=== PATIENT | female | born 1975 | race Caucasian/White ===

== ENCOUNTER 2017-09-17 20:36 | Emergency (ER) | payer OTHER ==
[2017-09-17 20:48] VITALS: PULSE 77; TEMP 97.9
--- NOTE | 2017-09-17 22:21 | EDPHY ---
H & P Time Seen by Provider: 09/17/17 20:59 HPI/ROS: CHIEF COMPLAINT: Right elbow injury HISTORY OF PRESENT ILLNESS: 42-year-old female presents to the emergency department with injury to her right elbow. The patient was exercising just prior to arrival and fell on her outstretched right hand. She complains of severe pain in her right elbow as well as pain in her right shoulder. She did not hit her head or lose consciousness. She denies any other trauma or injury. She is right-hand dominant. ROS: Denies numbness or tingling in her fingers, pain in her right wrist or right hand. Past Medical/Surgical History: Negative Social History: Lves in [place]. 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 The patient is holding her right elbow 90 degrees of flexion for comfort. Unable to supinate. Unable to extend her right elbow secondary to pain. Mild diffuse tenderness with palpation or right elbow. She also some mild tenderness with palpation of the right shoulder. There is no ecchymosis or abrasions noted. Normal sensation to light touch with normal 2 point discrimination. Strong radial pulse at the right wrist. Full range of motion of her left upper extremity and lower extremities bilaterally. No signs of trauma to her head. Constitutional: Initial Vital Signs Temperature (C) 36.6 C 09/17/17 20:46 Heart Rate 77 09/17/17 20:46 Respiratory Rate 18 09/17/17 20:46 Blood Pressure 145/93 H 09/17/17 20:46 O2 Sat (%) 96 09/17/17 20:46 O2 Delivery Mode Room Air Allergies/Adverse Reactions: Sulfa (Sulfonamide Antibiotics) Allergy (Verified 09/17/17 20:46) Home Medications: Medication Instructions Recorded Hydrocodone/APAP 5/325 [[place] 1 each PO Q4-6PRN PRN #15 tab 09/17/17 5/325 (*)] MDM/Departure - MDM Imaging Results: Imaging Impressions Elbow X-Ray 09/17/17 20:59 Impression: Comminuted fracture of anterior aspect of radial head, with severe displacement of radial head fragment. Orthopedic consultation is advised. Shoulder X-Ray 09/17/17 21:03 Impression: Negative right shoulder. 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 Medications Given: Discontinued Medications Hydrocodone Bitart/Acetaminophen ([place] 5/325mg Prepack#6) 1 btl TAKEYASMINE EDNOW ONE Stop: 09/17/17 22:31 Last Admin: 09/17/17 22:31 Dose: 1 btl ED Course/Re-evaluation: 42-year-old female presents to the emergency department with right elbow injury. X-rays reveal radial head fracture with fracture fragment displacement. Patient understands that she will likely require surgical intervention by orthopedic surgeon. She was placed in long-arm Ortho Glass splint and sling and will follow up with orthopedic surgeon this week. Patient was given hydrocodone for severe pain. The case was discussed with Dr. Hemanth Braun, secondary supervising physician, who did not directly evaluate the patient but agrees with treatment and plan. - Depart Disposition: Home, Routine, Self-Care Clinical Impression: Elbow fracture, right Qualifiers: Encounter type: initial encounter Fracture type: closed Qualified Code(s): S42.401A - Unspecified fracture of lower end of right humerus, initial encounter for closed fracture Condition: Good Instructions: Hydrocodone/Acetaminophen (By mouth), Elbow Fracture (ED) Additional Instructions: Ibuprofen 600mg every 8 hours for pain as directed. Hydrocodone as directed for severe pain. Keep splint and sling on until follow-up with orthopedic surgeon. Ice to help reduce swelling. Prescriptions: Hydrocodone/APAP 5/325 [[place] 5/325 (*)] 1 each PO Q4-6PRN PRN #15 tab PRN Reason: Pain, Severe Referrals: Shahzad Gale MD [Medical Doctor] - 2-3 days without fail (Orthopedic surgeon on-call the)
[2017-09-17] MEDS ORDERED: HYDROCOD/APAP 5/325 PREPACK#6 BTL TAKEHOME ONE ×2 (22:28→22:30)
[2017-09-17 22:36] VITALS: BP 141/80; RESP 16; O2SAT 95
== END 2017-09-17 22:35 | disposition home or self-care (01) ==
DX: S42.401A Unspecified fracture of lower end of right humerus, initial encounter for closed fracture (principal); W18.39XA Other fall on same level, initial encounter; Y92.39 Other specified sports and athletic area as the place of occurrence of the external cause; Y93.B9 Activity, other involving muscle strengthening exercises
CPT/HCPCS: A4565; L3925

== ENCOUNTER → 2017-09-25 | Outpatient (CLI) | payer OTHER ==
[~2017-09-25] MED LIST: BACITRACIN 50,000 UNITS/10 ML SYR IRR ONE; BUPIVACAINE 0.5% 30 ML SDV ONE; POLYMYXIN B SULFATE 500,000 UNIT/10 ML SYR IRR ONE
== END ==
LOC: FIMAGING 08:55
PROVIDERS: ATTEND Physician Assistant
DX: S52.351A Displaced comminuted fracture of shaft of radius, right arm, initial encounter for closed fracture (principal); S53.431A Radial collateral ligament sprain of right elbow, initial encounter; S53.441A Ulnar collateral ligament sprain of right elbow, initial encounter

== ENCOUNTER 2017-09-26 09:11 | Day surgery (SDC) | payer OTHER ==
--- NOTE | 2017-09-25 21:17 | GHP ---
[f rep st] PREOP HISTORY AND PHYSICAL DATE OF ADMISSION: 09/26/2017 DATE OF PLANNED PROCEDURE: 09/26/2017. REASON FOR ADMISSION: Radial head fracture, elbow dislocation right. 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 This was close reduced and splinted in the emergency department. She was seen in the office and decision made to proceed with an open reduction, internal fixation of the radial head, pos sible radial head replacement and ligamentous repair to the right elbow. PRIOR MEDICAL HISTORY: Negative. SURGICAL HISTORY: None. 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 Does not smoke. Occasional alcohol use. REVIEW OF SYSTEMS: Negative. PHYSICAL EXAMINATION: VITAL SIGNS: Temperature is 36.6, heart rate 77, respiratory rate 18, blood p ressure is 145/93, oxygen saturation 96% on room air. GENERAL: She is alert oriented x3. HEENT: N ormocephalic atraumatic. Extraocular muscles intact. NECK: Supple. There is no lymphadenopathy. No JVD. CHEST: Clear to auscultation. CARDIOVASCULAR: Regular rate and rhythm. ABDOMEN: Soft, n ontender, nondistended. EXTREMITIES: She is in a splint. She is moving her fingers well. She does have sensation to light touch. The radial medial and ulnar nerve motor function are intact in these nerves as well. Brisk capillary refill to all fingers. IMAGING: Both plain imaging and MRI is reviewed. She has a comminuted displaced radial head fractur e. She has a tear of the lateral collateral ligament, partial tear of the ulnar collateral ligament. There is a small coronoid fracture. Articular cartilage is well maintained. ASSESSMENT: Displaced radial head fracture with ligamentous disruption, right elbow following disloc ation fracture. PLAN: We will proceed with a potential open reduction, internal fixation of the radial head versus r adial head replacement with ligamentous repair. She will be immobilized in a splint followed by a hi nged elbow brace for the 1st 6 weeks postoperatively. Risks and benefits, including elbow stiffness, continued pain, need for additional surgery or revision surgery to the elbow were described. She un derstands these risks wished to proceed. We will plan on surgery tomorrow at [facility]. /[id number]/MODL
[2017-09-26] MEDS ORDERED: ceFAZolin 2 GM/SWFI 2 GM/20 ML SYR IVP ONE (09:38)
[2017-09-26] MEDS ORDERED: LR 1,000 ML IV ONE (09:39)
[2017-09-26] MEDS ORDERED: LIDOCAINE 1% 2 ML INJ ID PRN (09:39)
[2017-09-26] MEDS ORDERED: MIDAZOLAM 2 MG/2 ML VIAL IVP ONE (10:09)
--- NOTE | 2017-09-26 10:21 | PDANEPAE ---
ANE History of Present Illness orif elbow ANE Past Medical History - Cardiovascular History Hx Hypertension: No Hx Arrhythmias: No Hx Chest Pain: No Hx Coronary Artery / Peripheral Vascular Disease: No Hx CHF / Valvular Disease: No Hx Palpitations: No - Pulmonary History Hx COPD: No Hx Asthma/Reactive Airway Disease: No Hx Recent Upper Respiratory Infection: No Hx Oxygen in Use at Home: No Hx Sleep Apnea: No Sleep Apnea Screening Result - Last Documented: Negative - Neurologic History Hx Cerebrovascular Accident: No Hx Seizures: No Hx Dementia: No Neurologic History Comment: occ H/A due to wisdom teeth - Endocrine History Hx Diabetes: No - Renal History Hx Renal Disorders: No - Liver History Hx Hepatic Disorders: No - Neurological & Psychiatric Hx Hx Neurological and Psychiatric Disorders: No - Cancer History Hx Cancer: No - Congenital Disorder History Hx Congenital Disorders: No - GI History Hx Gastrointestinal Disorders: No - Other Health History Other Health History: Fx R radial head -s/p fall - Chronic Pain History Chronic Pain: Yes - Surgical History Prior Surgeries: liposuction under sedation ANE Review of Systems Review of Systems: - Exercise capacity METS (RN): 4 METS ANE Patient History - Allergies Allergies/Adverse Reactions: Sulfa (Sulfonamide Antibiotics) Allergy (Verified 09/26/17 09:50) - Home Medications Home Medications: Acetaminophen/Diphenhydramine 09/24/17 [Last Taken 09/25/17 23:00] - Anes Hx Hx Anesthesia Complications (with details): NO PRIOR OPERATIONS - Smoking Hx Smoking Status: Never smoked ANE Labs/Vital Signs - Vital Signs Height: 162.56 cm Weight: 96.162 kg ANE Physical Exam - Airway Mallampati Score: Class 2 - Pulmonary Pulmonary: no respiratory distress - Cardiovascular Cardiovascular: regular rate and rhythym - ASA Status ASA Status: I ANE Anesthesia Plan Anesthesia Plan: GA w LMA
[2017-09-26] MEDS ORDERED: fentaNYL 250 MCG/5 ML INJ ONE (10:30)
[2017-09-26] MEDS ORDERED: PROPOFOL 200 MG/20 ML VIAL ONE (10:30)
[2017-09-26] MEDS ORDERED: ONDANSETRON 4 MG/2 ML VIAL ONE (10:31)
[2017-09-26] MEDS ORDERED: KETOROLAC 30 MG/1 ML SDV ONE (10:31)
[2017-09-26] MEDS ORDERED: DEXAMETHASONE 4 MG/ML VIAL ONE (10:31)
[2017-09-26] MEDS ORDERED: LIDOCAINE 2% 5 ML SDV ONE (10:32)
--- NOTE | 2017-09-26 10:33 | PDHPUP ---
History & Physical Update H&P update statement: This history and physical update is based on an assessment of the patient which was completed after admission or registration (within 24 hours), but prior to the surgery/procedure. H&P update: H&P reviewed & patient examined, no change in patient's condition since H&P completed
[2017-09-26] MEDS ORDERED: BUPIVACAINE 0.5% 30 ML SDV ONE (11:32)
[2017-09-26] MEDS ORDERED: HYDROCODONE/APAP 5/325 TAB PO PRN (11:55)
[2017-09-26] MEDS ORDERED: LR 500 ML IV PRN (11:55)
[2017-09-26] MEDS ORDERED: HYDROmorphONE/DILAUDID 1 MG/ML INJ IVP PRN (11:55)
[2017-09-26] MEDS ORDERED: NALOXONE HCL 0.4 MG/ML INJ IVP PRN (11:55)
[2017-09-26] MEDS ORDERED: ONDANSETRON 4 MG/2 ML VIAL IVP PRN (11:55)
[2017-09-26] MEDS ORDERED: ALBUTEROL 3 ML DEYVIAL IH PRN (11:55)
[2017-09-26] MEDS ORDERED: fentaNYL 100 MCG/2 ML INJ IVP PRN (11:55)
--- NOTE | 2017-09-26 11:55 | POSTANESTH ---
Post Anesthetic Evaluation Cardiovascular Status: Normal, Stable Respiratory Status: Normal, Stable Level of Consciousness/Mental Status: Can Participate in Eval Pain Control: Adequate, Prn Tx Ordered Nausea/Vomiting Control: Adequate, Prn Tx Ordered Complications Possibly Related to Anesthesia: None Noted
[2017-09-26] MEDS ORDERED: fentaNYL 100 MCG/2 ML INJ ONE (12:03)
[2017-09-26 12:19] VITALS: TEMP 97.9
[2017-09-26 12:39] VITALS: O2SAT 94
--- NOTE | 2017-09-26 12:39 | GOP ---
[f rep st] OPERATIVE REPORT DATE OF OPERATION: 09/26/2017 SURGEON: Shahzad Gale MD ANESTHESIA: General, ANESTHESIOLOGIST: Greg Martell MD PREOPERATIVE DIAGNOSIS: Displaced comminuted radial head fracture, right with ligament disruption. POSTOPERATIVE DIAGNOSIS: Displaced comminuted radial head fracture, right with ligament disruption. PROCEDURE PERFORMED: 1. Radial head replacement. 2. Lateral collateral ligament repair. FINDINGS: ESTIMATED BLOOD LOSS: Minimal. 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 This was closed, reduced and splinted in the emergency department. MRI plain imaging showed a comminuted radial head fracture with disruption of the ligaments and decision was made to proceed with ORIF with possible radial head replacement, possible ligament repair. DESCRIPTION OF PROCEDURE: After appropriate informed consent was obtained, patient taken operating r oom, placed supine on the operating table. Time-out was performed. Patient was identified, correct site was identified, matched with radiographs that were in the room. She received 2 g of Ancef preop eratively. Following the induction of general endotracheal tube anesthesia, right upper extremity wa s prepped and draped in usual sterile fashion. I exsanguinated the limb, inflated the tourniquet to 250 mmHg. I made a standard Nadira incision laterally and soft tissues were carefully dissected. I bluntly dissected down into the joint. The radial head was easily identified. It was comminuted in several pieces. There was 1 large fragment still attached to the neck and then 3 other smaller impac ann fragments. There was not much bony stock to work with so I decided to remove the remaining radial head and I used our oscillating saw to make our cut and removed the remaining head. We then entered the radial canal and then broached up to a size 9. We trialed the 9 with +4 offset neck and that gave us good stability, full extension and 140 degrees of flexion. Trial implant was removed. I irrigat ed the canal. Final implant was assembled on the back table and tapped into place securely. Again, fu ll extension on the table 140 degrees of flexion, 90 degrees pronation supination. I irrigated the wo und. I then repaired back the ends of the lateral collateral ligament with #2 FiberWire. The elbow showed good stability with that repair both to varus and valgus stress. I did not open up more than 5 mm. Still, after the repair, good full extension to 0 degrees and 140 degrees of flexion. I irrig ated the wound a final time. The interval was closed with interrupted 0 Vicryl sutures. Superficial layers closed with 2-0 Vicryl suture and the skin was closed with interrupted 3-0 nylon stitches. I instilled 30 mL of 0.5% Marcaine plain around the incision. Sterile dressing and a posterior splint were applied with the elbow in neutral wrist and 90 degrees of elbow flexion. The patient was awake estella from anesthesia, taken to the recovery room in satisfactory condition. There were no immediate i ntraoperative complications. COMPLICATIONS: None. TOTAL TOURNIQUET TIME: 45 minutes at 250 mmHg. /[id number]/MODL
[2017-09-26 12:43] VITALS: BP 150/93; PULSE 62; RESP 17
== END 2017-09-26 14:46 | disposition home or self-care (01) ==
LOC: FSGY 09:11
PROVIDERS: ATTEND Orthopaedic Surgery
PROC: 0PRH0JZ Replacement of Right Radius with Synthetic Substitute, Open Approach (ICD-10-PCS; principal; 2017-09-26 10:15)
PROC: 0MQ30ZZ Repair Right Elbow Bursa and Ligament, Open Approach (ICD-10-PCS; principal; 2017-09-26 10:15)
DX: S52.121A Displaced fracture of head of right radius, initial encounter for closed fracture (principal); S53.431A Radial collateral ligament sprain of right elbow, initial encounter; W01.0XXA Fall on same level from slipping, tripping and stumbling without subsequent striking against object, initial encounter; Z88.2 Allergy status to sulfonamides
CPT/HCPCS: J0690; J1100; J1885; J2250; J2405; J2704; J3010

== ENCOUNTER 2017-12-18 09:55 | Day surgery (SDC) | payer OTHER ==
--- NOTE | 2017-12-17 23:14 | GHP ---
[f rep st] PREOP HISTORY AND PHYSICAL DATE OF ADMISSION: 12/18/2017 REASON FOR ADMISSION: Arthrofibrosis, right elbow, following radial head replacement and lateral col lateral ligament repair. PLANNED PROCEDURE: Manipulation under anesthesia. 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 She underwent radial head replacement with lateral collateral ligament repair . She has done well in regaining her extension. However, despite ongoing physical therapy as well a s the use of a static splint into flexion, she has failed to gain flexion beyond 90 degrees. X-ray s hows satisfactory alignment of the radial head replacement and decision has been made to proceed with a manipulation under anesthesia. PRIOR MEDICAL HISTORY: None. PRIOR SURGICAL HISTORY: Radial head replacement September 26, 2017. SOCIAL HISTORY: She does not smoke. Does not drink alcohol. 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 Is . Lives in [place]. REVIEW OF SYSTEMS: Unremarkable. PHYSICAL EXAMINATION: GENERAL APPEARANCE: Healthy-appearing 42-year-old female. VITAL SIGNS: She is 5 feet 4 inches tall, weighs 215 pounds. Blood pressure is 120/78, heart rate 78, respiratory rat e is 14 on room air. Alert, oriented x3. HEENT: Normocephalic, atraumatic. Extraocular muscles ar e intact. NECK: Supple. There is no lymphadenopathy. No JVD. CHEST: Clear to auscultation. CAR DIOVASCULAR: Regular rate and rhythm. ABDOMEN: Soft, nontender, nondistended. EXTREMITIES: Focus ing on the right elbow, there is no effusion. The lateral incision has healed nicely. She lacks 5-1 0 degrees of full extension. Has 70 degrees of pronation and supination without pain. The elbow is stable to varus and valgus stress testing. Little bit of discomfort with varus testing. The elbow d oes not open up, and she only flexed to about 90 degrees with a firm endpoint. IMAGING: X-ray, 2 views, of the elbow: Satisfactory alignment of the radial head replacement. ASSESSMENT: Status post radial head replacement, right elbow, with lateral collateral ligament repai r with postoperative stiffness. PLAN: She is now about 3 months out from the surgery with ongoing lack of progress in range of motio n for flexion. She has done a nice job with extension. Arm is not as functional as I would like it to be. I recommend proceeding with a manipulation under anesthesia followed by physical therapy nerissa jones the day after surgery and ongoing for the next week daily. Risks and benefits including continued stiffness postop, need for additional surgery were all discuss ed. She understands these risks, wishes to proceed. Will plan on a manipulation on Saturday rubia cheng at the [facility]. /[id number]/MODL
[2017-12-18] MEDS ORDERED: LR 1,000 ML IV ONE (10:30)
[2017-12-18] MEDS ORDERED: LIDOCAINE 1% 2 ML INJ ONE (10:30)
[2017-12-18] MEDS ORDERED: LIDOCAINE 1% 2 ML INJ ID PRN (10:30)
[2017-12-18 10:41] VITALS: PULSE 67
--- NOTE | 2017-12-18 10:48 | PDANEPAE ---
ANE Past Medical History - Cardiovascular History Hx Hypertension: No Hx Arrhythmias: No Hx Chest Pain: No Hx Coronary Artery / Peripheral Vascular Disease: No Hx CHF / Valvular Disease: No Hx Palpitations: No - Pulmonary History Hx COPD: No Hx Asthma/Reactive Airway Disease: No Hx Recent Upper Respiratory Infection: No Hx Oxygen in Use at Home: No Hx Sleep Apnea: No Sleep Apnea Screening Result - Last Documented: Negative - Neurologic History Hx Cerebrovascular Accident: No Hx Seizures: No Hx Dementia: No Neurologic History Comment: occ H/A due to wisdom teeth - Endocrine History Hx Diabetes: No - Renal History Hx Renal Disorders: No - Liver History Hx Hepatic Disorders: No - Neurological & Psychiatric Hx Hx Neurological and Psychiatric Disorders: No - Cancer History Hx Cancer: No - Congenital Disorder History Hx Congenital Disorders: No - GI History Hx Gastrointestinal Disorders: No - Other Health History Other Health History: POST RT ELBOW ORIF NOT GOOD ROM - Chronic Pain History Chronic Pain: Yes (RT ELBOW) - Surgical History Prior Surgeries: ORIF RT ELBOW 09/26/2017. liposuction under sedation ANE Review of Systems Review of Systems: - Exercise capacity METS (RN): 4 METS ANE Patient History - Allergies Allergies/Adverse Reactions: Sulfa (Sulfonamide Antibiotics) Allergy (Verified 12/17/17 13:59) EYE DROPS CAUSED INCREASED REDNESS - Home Medications Home Medications: Ibuprofen PRN 12/17/17 [Last Taken 2 Days Ago ~12/16/17] - NPO status NPO Since - Liquids (Date): 12/18/17 NPO Since - Liquids (Time): 04:30 NPO Since - Solids (Date): 12/17/17 NPO Since - Solids (Time): 21:00 - Smoking Hx Smoking Status: Never smoked ANE Labs/Vital Signs - Vital Signs Blood Pressure: 121/73 Heart Rate: 67 Respiratory Rate: 18 O2 Sat (%): 95 Height: 162.56 cm Weight: 96.162 kg ANE Physical Exam - Airway Neck exam: FROM, short neck Mallampati Score: Class 1 Mouth exam: normal dental/mouth exam - Pulmonary Pulmonary: no respiratory distress, no rales or rhonchi, clear to auscultation - Cardiovascular Cardiovascular: regular rate and rhythym, no murmur, rub, or gallop - ASA Status ASA Status: II ANE Anesthesia Plan Anesthesia Plan: GA w LMA
[2017-12-18] MEDS ORDERED: MIDAZOLAM 2 MG/2 ML VIAL ONE (10:56)
[2017-12-18] MEDS ORDERED: PROPOFOL/EMULSION 500 MG/50 ML BOTTLE IV ONE (10:57)
[2017-12-18] MEDS ORDERED: LIDOCAINE 2% 5 ML SDV ONE (11:05)
[2017-12-18] MEDS ORDERED: BUPIVACAINE 0.5% 30 ML SDV ONE (11:05)
[2017-12-18] MEDS ORDERED: ALBUTEROL 3 ML DEYVIAL IH PRN (11:14)
[2017-12-18] MEDS ORDERED: fentaNYL 100 MCG/2 ML INJ IVP PRN (11:14)
[2017-12-18] MEDS ORDERED: HYDROCODONE/APAP 5/325 TAB PO PRN (11:14)
[2017-12-18] MEDS ORDERED: METOCLOPRAMIDE 10 MG/2 ML VIAL IVP PRN (11:14)
[2017-12-18] MEDS ORDERED: MEPERIDINE 25 MG/ML SYR IVP PRN (11:14)
[2017-12-18] MEDS ORDERED: ONDANSETRON 4 MG/2 ML VIAL IVP PRN (11:14)
[2017-12-18] MEDS ORDERED: LR 500 ML IV PRN (11:14)
[2017-12-18] MEDS ORDERED: oxyCODONE IR 5 MG TAB PO PRN (11:14)
[2017-12-18] MEDS ORDERED: DEXAMETHASONE 4 MG/ML VIAL IVP PRN (11:14)
[2017-12-18] MEDS ORDERED: ACETAMINOPHEN 500 MG TAB PO PRN (11:14)
[2017-12-18] MEDS ORDERED: NALOXONE HCL 0.4 MG/ML INJ IVP PRN (11:14)
--- NOTE | 2017-12-18 11:28 | POSTOPPROG ---
Post Op Note Date of Operation: 12/18/17 Surgeon: Shahzad Gale Anesthesiologist: Suzanne Anesthesia: LMA Pre-op Diagnosis: arthrofibrosis rt elbow Post-op Diagnosis: same Procedure: YOEL rt elbow Inf/Abcess present in the surg proc area at time of surgery?: No EBL: none Complications: none
[2017-12-18 12:07] VITALS: RESP 19; TEMP 97.5
[2017-12-18 12:19] VITALS: O2SAT 97
[2017-12-18 12:39] VITALS: BP 104/71
--- NOTE | 2017-12-18 15:23 | GOP ---
[f rep st] OPERATIVE REPORT DATE OF OPERATION: 12/18/2017 SURGEON: Shahzad Gale MD ANESTHESIA: Monitored anesthesia care with LMA placement. ANESTHESIOLOGIST: Cristina Palacios MD PREOPERATIVE DIAGNOSIS: Arthrofibrosis right elbow following radial head replacement. POSTOPERATIVE DIAGNOSIS: Arthrofibrosis right elbow, following radial head replacement. PROCEDURE PERFORMED: Manipulation under anesthesia, right elbow. FINDINGS: DESCRIPTION OF PROCEDURE: After appropriate informed consent was obtained, the patient was taken to the operating room and placed supine on the operating table. Dr. Palacios administered monitored anest hesia care with placement of an LMA. When the airway was secure, I gently manipulated the arm to 135 degrees of flexion and about 5 degrees of full extension, 75 degrees of pronation and supination wer e obtained. I then sterilely prepped the lateral side of the elbow and injected 20 mL of 0.5% Marcai ne plain into the elbow joint. A Band-Aid was applied. The patient was awakened from anesthesia, ta cintia to the recovery room in satisfactory condition. There were no immediate intraoperative complicat ions. COMPLICATIONS: None. DRAINS: None. HISTORY: The patient is a 42-year-old female, who sustained a complex radial head fracture, underwen t radial head replacement by myself in early September. She has been working diligently in [employer]; however, struggled to regain functional flexion of the arm and the decision was made to procee d with a manipulation under anesthesia. /[id number]/MODL
== END 2017-12-18 13:04 | disposition home or self-care (01) ==
LOC: FSGY 09:55
PROVIDERS: ATTEND Orthopaedic Surgery
PROC: 3E0U3BZ Introduction of Anesthetic Agent into Joints, Percutaneous Approach (ICD-10-PCS; principal; 2017-12-18 11:00)
PROC: 0RN Upper Joints, Release (ICD-10-PCS; principal; 2017-12-18 11:00)
DX: T84.82XA Fibrosis due to internal orthopedic prosthetic devices, implants and grafts, initial encounter (principal)
CPT/HCPCS: J2250; J2704